=== PATIENT | female | born 1990 | race Caucasian/White ===

== ENCOUNTER → 2020-08-01 10:11 | Outpatient (CLI) | payer OTHER, MEDICAID, SELFPAY ==
[2020-08-01 10:39] LABS: COVID19 -Nasal RAPID Negative (Negative)
== END ==
PROVIDERS: PCP Family Medicine; Visit Provider Physician Assistant
DX: Z20.822 Contact with and (suspected) exposure to COVID-19 (principal)
CPT/HCPCS: 87635

== ENCOUNTER → 2020-08-20 15:49 | Outpatient (CLI) | payer OTHER, MEDICAID, SELFPAY ==
[2020-08-20 16:02] LABS: Add Manual Diff / Slide Review NO; Basophils Absolute Auto 0 /uL (0-100); Basophils Percent Auto 0.4 % (0-2); Eosinophils Absolute Auto 100 /uL (0-450); Eosinophils Percent Auto 1.3 % (2-4); Hematocrit 40.6 % (36-46); Hemoglobin 13.7 g/dL (12.0-16.0); Lymphocytes Absolute Auto 2100 /uL (1100-4500); Lymphocytes Percent Auto 18.4 % (25-40); Mean Corpuscular HGB Conc 33.7 % (30-36); Mean Corpuscular Volume 88.9 fL (80-100); Monocytes Absolute Auto 800 /uL (0-900); Neutrophils Absolute Auto 8400 /uL (1500-7000); Neutrophils Percent Auto 72.9 % (50-75); Platelet Count 259 X10^3/uL (150-400); Red Blood Cell Count 4.57 X10^6/uL (4.0-5.2); White Blood Cell Count 11.5 X10^3/uL (4.5-11.0)
[2020-08-20 16:18] LABS: Alanine Aminotransferase 15 IU/L (<35); Albumin 4.3 g/dL (3.5-5.0); Albumin Globulin Ratio 1.4 (1.0-2.8); Alkaline Phosphatase 54 U/L (38-126); Aspartate Aminotransferase 26 IU/L (14-36); BUN Creatinine Ratio 14.5 (6-22); Bilirubin Total 0.1 mg/dL (0.2-1.3); Blood Urea Nitrogen 8 mg/dL (7-17); Carbon Dioxide 25 mmol/L (22-32); Chloride 106 mmol/L (98-107); Estimated Glomerular Filt Rate > 60.0 mL/min (>60); Globulin 3.1 g/dL (1.7-4.1); Glucose 98 mg/dL (70-100); HEMOLYSIS < 15 (0-50); Potassium 3.6 mmol/L (3.4-5.1); Sodium 140 mmol/L (137-145); Total Protein 7.4 g/dL (6.3-8.2)
== END ==
PROVIDERS: PCP Family Medicine; Referring Provider Physician Assistant; Visit Provider Physician Assistant
DX: R55 Syncope and collapse (principal)
CPT/HCPCS: 36415; 80053; 85025

== ENCOUNTER → 2020-10-29 13:58 | Outpatient (CLI) | payer OTHER, MEDICAID, SELFPAY | PROVIDERS: PCP Family Medicine; Visit Provider Nurse Practitioner Family | DX: K13.70 Unspecified lesions of oral mucosa (principal) | CPT/HCPCS: 87255 ==

== ENCOUNTER → 2020-10-29 14:16 | Outpatient (CLI) | payer OTHER, MEDICAID, SELFPAY | PROVIDERS: PCP Family Medicine; Referring Provider Nurse Practitioner Family; Visit Provider Nurse Practitioner Family | DX: K13.70 Unspecified lesions of oral mucosa (principal) | CPT/HCPCS: 36415; 86696; 87255 ==

== ENCOUNTER → 2020-11-20 11:36 | Outpatient (CLI) | payer OTHER, MEDICAID, SELFPAY ==
[2020-11-20 15:43] LABS: Free T4, Direct Thyroxine 0.47 ng/dL (0.78-2.19)
[2020-11-20 15:56] LABS: Thyroid Stimulating Hormone 2.84 uIU/mL (0.47-4.68)
== END ==
PROVIDERS: PCP Family Medicine; Referring Provider Obstetrics & Gynecology; Visit Provider Obstetrics & Gynecology
DX: N92.6 Irregular menstruation, unspecified (principal)
CPT/HCPCS: 36415; 84439; 84443

== ENCOUNTER → 2021-02-18 14:53 | Outpatient (CLI) | payer OTHER, MEDICAID, SELFPAY ==
[2021-02-18 17:26] LABS: Urine N gonorrhoeae NOT DETECTED
[2021-02-18 17:35] LABS: Urine Chlamydia NOT DETECTED
== END ==
PROVIDERS: PCP Family Medicine; Visit Provider Nurse Practitioner Family
DX: R30.9 Painful micturition, unspecified (principal); N89.8 Other specified noninflammatory disorders of vagina
CPT/HCPCS: 81002; 81025; 87086; 87210; 87255; 87491; 87591

== ENCOUNTER → 2021-06-17 14:58 | Outpatient (CLI) | payer OTHER, MEDICAID, SELFPAY ==
[2021-06-17 16:11] LABS: Free T3, Triiodothyronine Free 3.17 pg/mL (2.77-5.27); Free T4, Direct Thyroxine 0.47 ng/dL (0.78-2.19)
[2021-06-17 16:25] LABS: Thyroid Stimulating Hormone 1.74 uIU/mL (0.47-4.68)
== END ==
PROVIDERS: PCP Family Medicine; Referring Provider Family Medicine; Visit Provider Family Medicine
DX: E03.9 Hypothyroidism, unspecified (principal)
CPT/HCPCS: 36415; 84439; 84443; 84481

== ENCOUNTER → 2022-02-08 14:00 | Outpatient (CLI) | payer OTHER, MEDICAID, SELFPAY ==
[2022-02-08 17:26] LABS: Free T3, Triiodothyronine Free 3.92 pg/mL (2.77-5.27); Free T4, Direct Thyroxine 0.85 ng/dL (0.78-2.19)
[2022-02-08 17:40] LABS: Thyroid Stimulating Hormone 0.039 uIU/mL (0.47-4.68)
[2022-02-10 21:34] LABS: Anti Thyroglobulin Antibody <1.0 IU/mL (0.0-0.9); Thyroid Peroxidase Antibodies <8 IU/mL (0-34)
== END ==
PROVIDERS: PCP Family Medicine; Referring Provider Family Medicine; Visit Provider Family Medicine
DX: E03.9 Hypothyroidism, unspecified (principal)
CPT/HCPCS: 36415; 84439; 84443; 84481; 86376; 86800

== ENCOUNTER → 2022-06-11 08:38 | Outpatient (CLI) | payer OTHER, MEDICAID, SELFPAY ==
[2022-06-11 10:38] LABS: Influenza A - CEPHEID Flu A NEGATIVE (NEGATIVE); Influenza B - CEPHEID Flu B NEGATIVE (NEGATIVE); Respiratory Syncytial Virus Negative (Negative)
[2022-06-11 10:41] LABS: COVID-19 CEPHEID 4-PLEX PCR Negative (Negative)
== END ==
PROVIDERS: PCP Family Medicine; Visit Provider Student in an Organized Health Care Education/Training Program
DX: J06.9 Acute upper respiratory infection, unspecified (principal); Z20.822 Contact with and (suspected) exposure to COVID-19
CPT/HCPCS: 0241U

== ENCOUNTER → 2022-07-06 15:32 | Outpatient (CLI) | payer OTHER, MEDICAID, SELFPAY ==
[2022-07-06 15:56] LABS: Pregnancy Test Urine Negative (Negative)
== END ==
PROVIDERS: PCP Family Medicine; Visit Provider Registered Nurse
DX: R30.0 Dysuria (principal); N92.6 Irregular menstruation, unspecified
CPT/HCPCS: 81002; 81025; 87077; 87086; 87186

== ENCOUNTER → 2023-05-18 13:18 | Outpatient (CLI) | payer OTHER, MEDICAID, SELFPAY ==
[2023-05-18 14:52] LABS: TSH w/ Reflex to FT4 1.33 uIU/mL (0.47-4.68)
== END ==
PROVIDERS: PCP Family Medicine; Referring Provider Family Medicine; Visit Provider Family Medicine
DX: E03.9 Hypothyroidism, unspecified (principal)
CPT/HCPCS: 36415; 84443

== ENCOUNTER → 2023-09-13 15:10 | Outpatient (CLI) | payer OTHER, MEDICAID, SELFPAY ==
[2023-09-13 16:53] LABS: Hemoglobin A1C% w Est Avg Glu 5.4 % (4.0-6.0)
== END ==
PROVIDERS: PCP Family Medicine; Referring Provider Family Medicine; Visit Provider Family Medicine
DX: Z13.1 Encounter for screening for diabetes mellitus (principal); E03.9 Hypothyroidism, unspecified; D89.89 Other specified disorders involving the immune mechanism, not elsewhere classified
CPT/HCPCS: 36415; 82784; 83036; 83516

== ENCOUNTER → 2023-10-03 15:21 | Outpatient (CLI) | payer OTHER, MEDICAID, SELFPAY ==
--- NOTE | 2023-10-03 15:21 | DI.US.S_ITS ---
PROCEDURE: US PELVIC COMPLETE INDICATIONS: Menorrhagia, dysmenorrhea TECHNIQUE: Real-time scanning was performed of the pelvic organs, with image documentation. Additional endovaginal scanning was necessary due to incomplete visualization of the adnexal and endometrial structures by transabdominal scanning. COMPARISON: [facility], US, US PELVIC COMPLETE, 05/02/2018, 14:35. FINDINGS: Uterus: Uterus is anteverted and normal in size at 8.5 x 6.2 x 4.1 cm. The myometrium is homogeneous. The endometrium measures 11 mm combined thickness. No endometrial mass or fluid is seen. Ovaries: The right ovary measures 4.2 x 1.8 x 2.1 cm, with a calculated ovarian volume of 8.3 cc. The left ovary measures 2.5 x 2.3 x 1.3 cm, with a calculated ovarian volume of 3.9 cc. Possible corpus luteal cyst in right ovary is seen measures 1.8 x 1.7 x 1.7 cm in size. Less than 12 follicles can be seen in each ovary. No adnexal masses are seen. Other: No pathologic free abdominal or pelvic fluid. IMPRESSION: 1. Normal appearing uterus and endometrium. 2. Possible corpus luteal cyst in right ovary as above. No solid appearing ovarian lesion. No adnexal mass. We strive to produce accurate, complete, and clear reports of imaging services. To assist us in improving patient care, this report was composed using standard report templates and voice recognition software. Therefore, it may contain abnormal punctuation, insertions and/or omissions. Occasional wrong-word or sound-alike substitutions may occur. Though we review the report and make efforts to correct it, we do recommend that the report be read carefully in proper context to recognize any text inaccuracies. Dictated by: Santino Padron M.D. on 10/03/2023 at 22:13 Approved by: Santino Padron M.D. on 10/03/2023 at 22:15
== END ==
PROVIDERS: PCP Family Medicine; Referring Provider Family Medicine; Visit Provider Family Medicine
DX: N92.0 Excessive and frequent menstruation with regular cycle (principal); N94.6 Dysmenorrhea, unspecified
CPT/HCPCS: 76830; 76856

== ENCOUNTER → 2024-04-27 16:40 | Outpatient (CLI) | payer OTHER, SELFPAY ==
--- NOTE | 2024-04-27 16:41 | DI.RAD.S_ITS ---
PROCEDURE: XR SHOULDER RT MIN 2V INDICATIONS: Right shoulder strain TECHNIQUE: 3 views of the shoulder were acquired. COMPARISON: None. FINDINGS: Bones: No fractures or dislocations. No suspicious bony lesions. Visualized ribs appear intact. Soft tissues: No suspicious soft tissue calcifications. IMPRESSION: No acute bony abnormality. Approved by: Christian White M.D. on 04/27/2024 at 19:02
[2024-04-27 18:28] LABS: Alanine Aminotransferase 17 IU/L (<35); Albumin 4.9 g/dL (3.5-5.0); Albumin Globulin Ratio 1.4 (1.0-2.8); Alkaline Phosphatase 58 U/L (38-126); Aspartate Aminotransferase 33 IU/L (14-36); BUN Creatinine Ratio 19.5 (6-22); Bilirubin Total 0.3 mg/dL (0.2-1.3); Blood Urea Nitrogen 15 mg/dL (7-17); Calcium 9.4 mg/dL (8.4-10.2); Carbon Dioxide 23 mmol/L (22-32); Chloride 102 mmol/L (98-107); Estimated Glomerular Filt Rate > 60 mL/min (>60); Globulin 3.6 g/dL (1.7-4.1); Glucose 98 mg/dL (70-100); HEMOLYSIS 15 (0-50); Potassium 3.7 mmol/L (3.4-5.1); Sodium 139 mmol/L (137-145); Total Protein 8.5 g/dL (6.3-8.2)
[2024-04-27 19:00] LABS: Thyroid Stimulating Hormone 1.69 uIU/mL (0.47-4.68)
[2024-05-01 14:36] LABS: Estrogen 459 pg/mL (.)
== END ==
PROVIDERS: PCP Family Medicine; Referring Provider Nurse Practitioner Family; Visit Provider Nurse Practitioner Family
DX: S46.911A Strain of unspecified muscle, fascia and tendon at shoulder and upper arm level, right arm, initial encounter (principal); E03.9 Hypothyroidism, unspecified; Z31.69 Encounter for other general counseling and advice on procreation
CPT/HCPCS: 36415; 73030; 80053; 82397; 82672; 84144; 84443; 84999

== ENCOUNTER 2024-04-27 20:49 | Emergency (ER) | payer OTHER, SELFPAY ==
[2024-04-27 20:53] VITALS: BP 107/82; PULSE 62; RESP 16; TEMP 37.1; O2SAT 98; BMI 21.2
[2024-04-27] MEDS: ONDANSETRON 4 MG ODT SL (22:22)
--- NOTE | 2024-04-27 22:30 | ED.UPPEXIN ---
HPI - Extremity Injury (Upper) General Chief Complaint: Extremity Injury, Upper Stated Complaint: rt shoulder injury Time Seen by Provider: 04/27/24 22:25 Source: patient Mode of arrival: Family Vehicle History of Present Illness HPI narrative: 34-year-old female seen earlier today in urgent care with right shoulder sling, placed in a sling, taking ibuprofen. Having increased pain. She has not been prescribed any other medications she stated, has significant pain in feels like she is going to pass out, in fact might have briefly passed out from the pain. No repeat new injury. She is wearing the sling. Right anterior deep shoulder discomfort noted. Related Data Previous Rx's Medication Instructions Recorded levothyroxine 50 mcg tablet 50 mcg PO DAILY #90 tabs 03/08/24 hydrocodone 5 mg-acetaminophen 325 1 tab PO Q6H PRN pain #14 tabs 04/27/24 mg tablet methocarbamol 500 mg tablet 500 mg PO TID 7 days #21 tabs 04/27/24 naproxen 500 mg tablet 500 mg PO BID 7 days #14 tabs 04/27/24 Allergies Allergy/AdvReac Type Severity Reaction Status Date / Time No Known Drug Allergies Allergy Verified 04/27/24 16:15 Patient History Medical History (Updated 04/27/24 @ 23:01 by Alexis Easley MD) Dizziness Hypothyroidism (acquired) Near syncope Ingrown hair Skin lump of arm Dysplastic nevi Anxiety Family History Father Chronic mental illness Mother No problems noted. Social History Smoking Status: Never smoker Smoking Status: Never smoker Exam Narrative Exam Narrative: GENERAL: Well-developed patient, in mild distress. HEAD: Atraumatic. Normocephalic. EYES: Pupils equal round and reactive. Extraocular motions intact. No scleral icterus. No injection or drainage. ENT: Nose without bleeding, purulent drainage. Throat without erythema, tonsillar hypertrophy or exudate. Airway patent. NECK: Trachea midline. Non tender. No midline tenderness. No tenderness along right paraspinal musculature. No tenderness along the midline or paraspinal musculature upper thoracic midthoracic. CARDIOVASCULAR: Regular rate and rhythm without murmurs, gallops, or rubs. RESPIRATORY: Clear to auscultation. Breath sounds equal bilaterally. No wheezes, rales, or rhonchi. GASTROINTESTINAL: Abdomen soft, non-tender, nondistended. EXTREMITIES: Patient in shoulder sling from urgent care, in good position. No gross deformity to the superior trapezius, mild tenderness to the anterior bicipital groove. No tenderness over the anterior deltoid or AC joint or posterior deltoid region. No tenderness along the right superior rhomboid musculature, but some mid lower rhomboid muscular area discomfort. BACK: Nontender without deformity or crepitance. No flank tenderness. NEURO: AOx3. Motor functions grossly nonfocal SKIN: No rash or erythema of visible areas Initial Vital Signs Initial Vital Signs: Vital Signs Temperature 98.8 F 04/27/24 20:53 Pulse Rate 62 04/27/24 20:53 Respiratory Rate 16 04/27/24 20:53 Blood Pressure 107/82 04/27/24 20:53 Pulse Oximetry 98 04/27/24 20:53 Oxygen Delivery Method Room Air 04/27/24 20:53 Course Orders Ordered: Discontinued Medications Hydrocodone Bitart/Acetaminophen (Hydrocodone/Acet 5/325 Tablet) 1 tab PO NOW ONE Stop: 04/27/24 22:44 Last Admin: 04/27/24 23:04 Dose: 1 tab Documented By: HARSHAL Methocarbamol (Methocarbamol 500 Mg Tablet) 500 mg PO NOW ONE Stop: 04/27/24 22:45 Last Admin: 04/27/24 23:04 Dose: 500 mg Documented By: HARSHAL Naproxen (Naproxen 250 Mg Tablet) 500 mg PO NOW ONE Stop: 04/27/24 22:45 Last Admin: 04/27/24 23:02 Dose: 500 mg Documented By: HARSHAL Ondansetron HCl (Ondansetron 4 Mg Odt) 4 mg SL NOW ONE Stop: 04/27/24 22:09 Last Admin: 04/27/24 22:22 Dose: 4 mg Documented By: HARSHAL Ondansetron HCl (Ondansetron 4 Mg Odt Prepack) 1 bottle MISC DIRECTED ONE Stop: 04/27/24 23:23 Last Admin: 04/27/24 23:26 Dose: 1 bottle Documented By: HARSHAL Vital Signs Vital signs: Vital Signs - 8 hr 04/27/24 20:53 04/27/24 23:11 Temperature 98.8 F Pulse Rate 62 60 Respiratory Rate 16 Blood Pressure 107/82 102/67 Pulse Oximetry 98 100 Oxygen Delivery Method Room Air MDM - Extremity Injury (Upper) MDM Narrative Medical decision making narrative: Right shoulder strain, urgent care visit with x-ray, placed in right shoulder sling, taking ibuprofen. Having increased/significant pain, near syncopal episode described, due to the shoulder pain. She would like additional pain medication. Copy of the right shoulder x-ray report from earlier today located, printed, copy given to patient, no acute changes, no fractures or dislocations in bony structures noted. See radiology report, this was done as an outpatient for today. Oral naproxen, hydrocodone, Robaxin/methocarbamol. Home pack of hydrocodone and methocarbamol. Prescription for naproxen, hydrocodone, methocarbamol sent to her pharmacy. Continue use of sling advised. Follow up with Orthopedic surgery, contact information given for Orthopedic surgery on-call, advised to call their office on Tuesday. Return precautions discussed. Home with significant other Discharge Plan Departure Patient Disposition: Home Clinical Impression: Right shoulder strain, Rhomboid muscle strain Activity Restrictions/Additional Instructions: Recent shoulder popping injury right-sided, evaluation walk-in clinic earlier today, x-ray done, report negative for any dislocation or bony abnormalities. Placed in a right shoulder sling. You had been taking ibuprofen through the day, but had inadequate pain relief. On examination there is no gross deformity, sling is being worn. On examination he had not seem to have tenderness along the right upper superior musculature, or along the right midline or paraspinous spinal muscles. No significant tenderness upper rhomboid musculature but some mid lower rhomboid muscular tenderness, possible spasm, possible secondary spasm to intra-articular injury. It is possible you had a soft tissue injury, this is not seen on plain films. No MRI available tonight, and might not be indicated if you have significant improvement in close follow up as an outpatient. CT scanning could be done tonight, but poses risks of radiation, and likely no significant bony additional information would be obtained, and soft tissue information less than MRI study. Hold CT scanning for now. Additional pain medication given with oral hydrocodone. Muscle relaxant Robaxin/methocarbamol. Oral dose naproxen anti-inflammatory pain medication also given. Home pack of these medications methocarbamol and hydrocodone provided as well overnight. Prescriptions for methocarbamol and hydrocodone sent to your pharmacy. Prescription also for naproxen, prescription range strength, though this is [id number] if you prefer to use that formulation. Continue using right shoulder sling. Follow up with a local orthopedic surgeon on Tuesday. Contact information provided for Dr. Serrano, call her office on Tuesday morning. Prescriptions: New naproxen 500 mg tablet 500 mg PO BID 7 Days Qty: 14 0RF methocarbamol 500 mg tablet 500 mg PO TID 7 Days Qty: 21 0RF hydrocodone-acetaminophen 5-325 mg tablet 1 tab PO Q6H PRN (Reason: pain) Qty: 14 0RF No Action levothyroxine 50 mcg tablet 50 mcg PO DAILY Qty: 90 0RF Referrals: Vicky Serrano MD [Physician] - María Beck DO [Primary Care Provider] - Stand Alone Forms: Patient Portal/API/Survey
[2024-04-27] MEDS: NAPROXEN 250 MG TABLET 500 MG PO (23:02)
[2024-04-27] MEDS: HYDROCODONE/ACET 5/325 TABLET 1 TAB PO (23:04)
[2024-04-27] MEDS: methocarbamoL 500 MG TABLET PO (23:04)
[2024-04-27 23:11] VITALS: BP 102/67; PULSE 60; O2SAT 100
[2024-04-27] MEDS: ONDANSETRON 4 MG ODT PREPACK 1 BOTTLE MISC (23:26)
== END 2024-04-27 23:29 | disposition home or self-care (01) ==
PROVIDERS: Emergency Provider Emergency Medicine; PCP Family Medicine
DX: S46.911A Strain of unspecified muscle, fascia and tendon at shoulder and upper arm level, right arm, initial encounter (principal); S29.012A Strain of muscle and tendon of back wall of thorax, initial encounter; X58.XXXA Exposure to other specified factors, initial encounter
CPT/HCPCS: 99283